=== PATIENT | male | born 1975 | race Hispanic/Latino ===

== ENCOUNTER → 2024-12-22 | Outpatient (CLI) | payer OTHER ==
--- NOTE | 2024-12-23 06:10 | HMCIMG ---
EXAM: CT Abdomen and Pelvis Without IV contrast CLINICAL HISTORY: Patient presents with kidney and ureteral calculi. TECHNIQUE: Axial computed tomography images of the abdomen and pelvis without intravenous contrast. CONTRAST: No IV contrast. COMPARISON: None provided. FINDINGS: LUNG BASES: The lung bases are clear. No pleural effusion. LIVER: The liver is enlarged measuring 22.5 cm in craniocaudal span. GALLBLADDER AND BILE DUCTS: The gallbladder is surgically absent. No biliary ductal dilatation. PANCREAS: Unremarkable. SPLEEN: Unremarkable. ADRENAL GLANDS: Unremarkable. KIDNEYS, URETERS, AND BLADDER: Mild right hydronephrosis. Obstructive calculi are present in the right terminal ureter and right vesicoureteric junction, largest measuring 0.6 cm. A right proximal ureteric calculus measures 0.7 cm. Non-obstructive calculi are present in the right kidney, largest measuring 0.5 cm in the mid calyx. The urinary bladder is unremarkable. STOMACH AND BOWEL: Mild constipation. No bowel obstruction, enteritis, or colitis. APPENDIX: No CT features of acute appendicitis. PERITONEUM: No free fluid. No free air. LYMPH NODES: No lymphadenopathy. REPRODUCTIVE: Unremarkable as visualized. VASCULATURE: No abdominal aortic aneurysm. ABDOMINAL WALL: Small fat-containing umbilical hernia. BONES: No acute fracture or aggressive osseous lesion. IMPRESSION: Mild right hydronephrosis with an obstructive calculi in the right terminal ureter and right vesicoureteric junction, largest measuring 0.6 cm. Right proximal ureteric calculus measuring 0.7 cm. Non-obstructive right renal calculi, largest measuring 0.5 cm. Hepatomegaly. Status post cholecystectomy. Small fat-containing umbilical hernia. Mild constipation. /[facility]
== END | disposition home or self-care (01) ==
LOC: RAH 14:03
PROVIDERS: ATTEND Family Medicine
DX: N13.2 Hydronephrosis with renal and ureteral calculous obstruction (principal); K42.9 Umbilical hernia without obstruction or gangrene; K59.00 Constipation, unspecified; K76.89 Other specified diseases of liver; Z90.49 Acquired absence of other specified parts of digestive tract
CPT/HCPCS: 74176